=== PATIENT | female | born 1950 | race Caucasian/White ===

== ENCOUNTER 2021-03-02 13:47 | Outpatient (CLI) | payer OTHER | END 2021-03-02 13:55 | disposition home or self-care (01) | LOC: RAD 13:47 | DX: M17.2 Bilateral post-traumatic osteoarthritis of knee (principal); M25.561 Pain in right knee ==

== ENCOUNTER 2021-03-10 12:04 | Outpatient (CLI) | payer OTHER | END 2021-03-10 12:12 | disposition home or self-care (01) | LOC: MRI 12:04 | DX: M25.562 Pain in left knee (principal); S80.912A Unspecified superficial injury of left knee, initial encounter | CPT/HCPCS: 73718 ==

== ENCOUNTER 2024-09-12 13:50 | Outpatient (CLI) | payer OTHER | END 2024-09-12 14:11 | disposition home or self-care (01) | LOC: MRI 13:50 | DX: M79.605 Pain in left leg (principal); M25.552 Pain in left hip | CPT/HCPCS: 73721 ==